=== PATIENT | male | born 1980 | race Caucasian/White ===

== ENCOUNTER 2019-11-15 16:15 | Emergency (ER) | payer BC ==
[~2019-11-15] VITALS: Ht 180.3 cm; Wt 128.2 kg
[2019-11-15 16:30] VITALS: BP 142/91
[2019-11-15] MEDS ORDERED: oxyCODONE/APAP 5/325 1 TAB TABLET PO ONE (16:45)
--- NOTE | 2019-11-15 16:50 | RAD ---
AP, oblique, and lateral views of the left knee were obtained. Indication: Trauma with pain Comparison: none. Findings: No fracture, dislocation, significant degenerative changes, or effusion is seen. Impression: 1. Unremarkable examination of the left knee. Electronically signed by: Julian Abarca MD (11/15/2019 4:47 PM) [id number]
--- NOTE | 2019-11-15 17:30 | RAD ---
STUDY: CT of the left lower extremity without contrast INDICATION: Blunt trauma. Evaluate for an occult fracture. COMPARISON: Same day radiographs of the left knee. TECHNIQUE: Axial CT imaging of the left lower extremity/knee performed without contrast. Coronal and sagittal reformats were obtained. One or more of the following individualized dose reduction techniques were utilized for this examination: 1. Automated exposure control 2. Adjustment of the mA and/or kV according to patient size 3. Use of iterative reconstruction technique. FINDINGS: Bones: Minimal cortical regularity along the anterior margin of the proximal tibia located lateral to midline, image 88 series 2, with the area of involvement only measuring approximately 3 to 4 mm transverse. No displaced fracture seen about the knee. There is slight patellar tilting and lateral subluxation but the TT-TT TG distance is normal. Soft tissues: Reticulation of the subcutaneous tissues at the anterior aspect of the knee particularly overlying the patellar tendon. The patellar tendon and distal quadriceps are intact. No significant knee joint effusion. Unremarkable musculature. The popliteal fossa contents are normal. No evidence for ACL or PCL disruption by CT. IMPRESSION: Subtle cortical irregularity at the anterior/lateral aspect of the proximal tibia at the level of the epiphysis (reference axial image 88 and coronal image 50) that is only a few millimeters in size. A very mild impaction-type fracture is a consideration as there are findings of contusion at the anterior aspect of the knee overlying this region. No displaced or intraarticular fracture. No significant knee joint effusion. Though not well evaluated by CT, grossly intact extensor mechanism, cruciate ligaments and collateral ligaments. Electronically signed by: FALGUNI MUSTAFA MD (11/15/2019 5:27 PM) [id number]
--- NOTE | 2019-11-15 17:40 | PHYS DOC ---
Past History Past Medical History: Anxiety, Depression Past Surgical History: No Surgical History Alcohol Use: None Adult General Chief Complaint Chief Complaint: LOWEREXTREMITY INJURY HPI HPI 38-year-old male who was up cutting a tree down and while at work and a 2000 pound log pinned his left knee against his mental bucket that he was standing in about 30 feet off the ground pain severe difficult to walk mostly on the lateral aspect of the knee. No calf tenderness or pain Review of Systems Review of Systems Constitutional: Denies fever or chills [] Eyes: Denies change in visual acuity, redness, or eye pain [] HENT: Denies nasal congestion or sore throat [] Neurologic: Denies headache, focal weakness or sensory changes [] Endocrine: Denies polyuria or polydipsia [] All other systems were reviewed and found to be within normal limits, except as documented in this note. Current Medications Current Medications Current Medications Medications (Trade) Dose Ordered Sig/Niecy Start Time Stop Time Status Last Admin Dose Admin Oxycodone/ Acetaminophen (Percocet 5/325) 2 tab 1X ONCE 11/15/19 16:45 11/15/19 16:47 DC 11/15/19 16:45 2 TAB Allergies Allergies Allergies Coded Allergies Type Severity Reaction Last Updated Verified acetaminophen Allergy Unknown 11/15/19 Yes hydrocodone Allergy Unknown 11/15/19 Yes Physical Exam Physical Exam Constitutional: Well developed, well nourished, no acute distress, non-toxic appearance. [] HENT: Normocephalic, atraumatic, bilateral external ears normal, oropharynx moist, no oral exudates, nose normal. [] Eyes: PERRLA, EOMI, conjunctiva normal, no discharge. [] Neck: Normal range of motion, no tenderness, supple, no stridor. [] Pulmonary: Normal respiratory effort no increased work of breathing no obvious chest wall trauma Abdomen: Bowel sounds normal, soft, no tenderness, no masses, no pulsatile masses. [] Skin: Warm, dry, no erythema, no rash. [] Back: No tenderness, no CVA tenderness. [] Extremities: Tenderness to palpation noted at the lateral aspect of the left lateral tibia. No effusion is seen. No calf tenderness there is no muscle tenderness the compartments are soft Neurologic: Alert and oriented X 3, normal motor function, normal sensory function, no focal deficits noted. [] Psychologic: Affect normal, judgement normal, mood normal. [] Current Patient Data Vital Signs Vital Signs Date Time Temp Pulse Resp B/P (MAP) Pulse Ox O2 Delivery O2 Flow Rate FiO2 11/15/19 16:30 87 18 142/91 (108) 97 EKG EKG [] Radiology/Procedures Radiology/Procedures [] Impressions: IMPRESSION: Subtle cortical irregularity at the anterior/lateral aspect of the proximal tibia at the level of the epiphysis (reference axial image 88 and coronal image 50) that is only a few millimeters in size. A very mild impaction-type fracture is a consideration as there are findings of contusion at the anterior aspect of the knee overlying this region. No displaced or intraarticular fracture. No significant knee joint effusion. Though not well evaluated by CT, grossly intact extensor mechanism, cruciate ligaments and collateral ligaments. Electronically signed by: FALGUNI MUSTAFA MD (11/15/2019 5:27 PM) [id number] Course & Med Decision Making Course & Med Decision Making Pertinent Labs and Imaging studies reviewed. (See chart for details) []xray neg noted ct finding knee immobilizer crutches non weight beraing f/u ortho in one week Dragon Disclaimer Dragon Disclaimer This electronic medical record was generated, in whole or in part, using a voice recognition dictation system. Departure Departure: Impression: Primary Impression: Tibia fracture Disposition: 01 HOME, SELF-CARE Condition: STABLE Referrals: ALYSIA PRINCE (PCP) CAESAR CHING MD Nov 15, 2019 17:40
== END 2019-11-15 18:02 | disposition home or self-care (01) ==
LOC: ER 16:15
DX: S82.202A Unspecified fracture of shaft of left tibia, initial encounter for closed fracture (principal); Z88.8 Allergy status to other drugs, medicaments and biological substances; W22.8XXA Striking against or struck by other objects, initial encounter; Y93.89 Activity, other specified; Y92.89 Other specified places as the place of occurrence of the external cause; Y99.0 Civilian activity done for income or pay
CPT/HCPCS: 73562; 73700; 99284

== ENCOUNTER → 2019-12-27 | Outpatient (CLI) | payer BC, OTHER ==
--- NOTE | 2019-12-27 15:35 | RAD ---
Single standing view of both knees and 2 additional views of the right knee without comparison for right knee pain. FINDINGS: There is no fracture, dislocation, or acute osseous abnormality involving either knee. No significant degenerative changes are seen. No suprapatellar joint effusion is evident. No radiopaque foreign bodies are seen. IMPRESSION: 1. No acute osseous abnormality of either knee. Electronically signed by: Scott Flood MD (12/27/2019 3:32 PM) [id number]
== END | disposition home or self-care (01) ==
LOC: RAD 14:42
PROVIDERS: ATTEND Physician Assistant
DX: M17.11 Unilateral primary osteoarthritis, right knee (principal); M25.562 Pain in left knee
CPT/HCPCS: 73560; 73565